=== PATIENT | male | born 1985 | race Caucasian/White ===

== ENCOUNTER 2025-07-29 14:04 | Emergency (ER) | payer BC ==
[~2025-07-29] VITALS: Ht 200.7 cm; Wt 137.3 kg
[2025-07-29 14:08] VITALS: BP 147/89; PULSE 109; RESP 18; TEMP 96.9; O2SAT 97
[2025-07-29] MEDS ORDERED: MUPI22OI30 TOP (14:24)
[2025-07-29] MEDS ORDERED: DOXY100C43 PO (14:24)
--- NOTE | 2025-07-29 14:24 | Physician Documentation ---
History of Present Illness ~ Chief Complaint: Rash Stated Complaint: RASH Time Seen by MD: 14:07 HPI 40-year-old male with waxing and waning rash to the groin area the primarily appears after shaving. Non confluent, non pruritic, no urogenital symptoms. Medication Reconciliation Allergies: Coded Allergies: No Known Allergies (Unverified , 07/29/25) Scheduled Doxycycline Monohydrate (Doxycycline Monohydrate), 100 MG PO BID Mupirocin* (Bactroban*), 1 APPLIC TOP Q8H Review of Systems All Other Systems at this time: Reviewed and Negative Constitutional: Reports: see HPI Integumentary: Reports: rash Physical Exam Vital Signs: RN Vital Signs have been reviewed: Yes, Temperature: 96.9, Source: Temporal, Heart Rate: 109, Respiratory Rate: 18, BP: 147/89, Pulse Oximetry: 97, Weight: 137.300 Oxygen Flow Rate: 0 General Appearance: alert, WD/WN, mild distress Eyes, Ears: normal ENT inspection Tongue: normal inspection Buccal Mucosa: normal inspection Palate: normal inspection Pharynx: normal inspection Neck: non-tender Respiratory: no respiratory distress Chest: no accessory muscle use Gastrointestinal: non-tender Back: normal inspection Skin: warm/dry, other (Scattered raised follicular erythema to the groin area) Progress Results/Orders Results/Orders Vital Signs 07/29/25 14:08 Temp 96.9 Pulse 109 Resp 18 B/P (MAP) 147/89 Pulse Ox 97 O2 Flow Rate 0 Medical Decision Making Additional information obtaine: N/A Findings Examination is consistent with pseudo-folliculitis. We will prescribe Bactroban topically and oral antibiotic. Patient's safely discharged in the emergency department. Differential Dx:Considerations: Include: Herpes zoster, Herpes simplex, Impetigo, Intertrigo, Pediculosis, Psoriaisis, Scabies, Tinea, Urticaria, Varicella, Viral exanthema Departure Disposition: 01 HOME / SELF CARE / HOMELESS Impression: Primary Impression: Rash of groin Condition: Stable Additional Instructions: Please begin topical and oral antibiotic as directed. Please avoid shaving for 1-2 weeks. Make follow up with the primary care physician and to return to the emergency department symptoms worsen. Thank you for visiting in the emergency department [facility]. Have a good Thanksgiving Referrals: NO PRIMARY CARE PROVIDER (PCP) Prescriptions Doxycycline Monohydrate (Doxycycline Monohydrate) 100 Mg Capsule 100 MG PO BID, #20 CAP may sub doxycycline hyclate or azithromycin z-pack as prescribed Prov: PAUL JULIAN PAC 07/29/25 Mupirocin* (Bactroban*) 22 Gm Tube 1 APPLIC TOP Q8H for 7 Days, #22 GM apply to affected area(s) Prov: PAUL JULIAN PAC 07/29/25 Education Educated: Patient Educated regarding: diagnosis, treatment, prognosis, need for follow up Signature Scribe Signature: . Attestation: . PAUL JULIAN PAC Jul 29, 2025 14:24
== END 2025-07-29 14:50 | disposition home or self-care (01) ==
LOC: ER 14:04
DX: R21 Rash and other nonspecific skin eruption (principal); Z79.899 Other long term (current) drug therapy
CPT/HCPCS: 99283